=== PATIENT | female | born 1955 | race Caucasian/White ===

== ENCOUNTER 2018-10-21 09:35 | Outpatient (CLI) | payer OTHER ==
--- NOTE | 2018-10-21 11:09 | XRAY Report ---
Reason: SPRAIN OF CALCANEOFIBULAR LIGA OF RT ANKLE Procedure Date: 10/21/2018 Accession Number: [id number] / [id number] Procedure: XR - Ankle 3 View RT CPT Code: FULL RESULT: EXAM: RIGHT ANKLE RADIOGRAPHY EXAM DATE: 10/21/2018 10:03 AM. CLINICAL HISTORY: Sprain of calcaneofibular ligament of right ankle. Right ankle pain after rolling ankle one day ago. COMPARISON: None. TECHNIQUE: 3 views. FINDINGS: Bones: Mild inferior and mild posterior calcaneal spurring. No fractures or bone lesions. Joints: Normal. No effusion. No subluxations. The ankle mortise is normally aligned. Soft Tissues: Mild soft tissue swelling in the ankle region. IMPRESSION: No fracture or dislocation. RADIA
== END 2018-10-21 09:36 | disposition home or self-care (01) ==
LOC: DI 09:35
PROVIDERS: ATTEND Family Medicine
DX: S93.411A Sprain of calcaneofibular ligament of right ankle, initial encounter (principal)

== ENCOUNTER 2019-02-22 17:10 | Outpatient (CLI) | payer OTHER | END 2019-02-22 23:59 | disposition home or self-care (01) | LOC: LAB.R 17:10 | PROVIDERS: ATTEND Nurse Practitioner | DX: J02.9 Acute pharyngitis, unspecified (principal) | CPT/HCPCS: 87070 ==

== ENCOUNTER 2022-07-15 10:29 | Emergency (ER) | payer MEDICARE, OTHER ==
--- NOTE | 2022-07-15 10:54 | ED Physician Documentation ---
PD HPI HEENT - Stated complaint Stated Complaint: RT EAR PX,UNWELL - Chief complaint Chief Complaint: Heent - History obtained from History obtained from: Patient - Additional information Additional information: She has been sick for 2 weeks with prominent sinus pressure, drainage, bilateral ear crackling and pain. No fevers. Had a cough last night. Took 5 days worth of amoxicillin starting 5 days ago which was not helpful. She is been on Flonase as well. PD PAST MEDICAL HISTORY - Past Medical History Endocrine/Autoimmune: HyPOthyroidism - Past Surgical History Past Surgical History: No General: Bowel surgery - Present Medications Home Medications: Ambulatory Orders Medication Instructions Recorded Confirmed Hydrocodone/Acetaminophen [[place] 1 each PO Q6H PRN #15 tablet 04/12/15 5-325 Tablet] Levothyroxine [Synthroid] 2 tab PO DAILY 04/12/15 04/12/15 methocarbamoL [Robaxin] 500 mg PO Q6H PRN #25 tablet 04/12/15 Amox/Clav 875/125 [Augmentin] 1 each PO Q12H #20 tablet 07/15/22 Azithromycin [Zithromax] 1 tab PO DAILY #6 tablet 07/15/22 predniSONE [Deltasone] 40 mg PO DAILY 5 Days #10 tablet 07/15/22 - Allergies Allergies/Adverse Reactions: Allergies Allergy/AdvReac Type Severity Reaction Status Date / Time aspirin Allergy Respiratory Verified 07/15/22 10:39 cephalexin monohydrate * Allergy Rash Verified 07/15/22 10:39 [From Keflex] latex Allergy Rash Verified 07/15/22 10:39 - Social History Does the pt smoke?: No Smoking Status: Never smoker Does the pt drink ETOH?: Yes Does the pt have substance abuse?: No - Immunizations Immunizations are current?: Yes PD ED PE NORMAL - Vitals Vital signs reviewed: Yes - General General: Alert and oriented X 3, No acute distress - HEENT HEENT: Pharynx benign, Other (Tender to both maxillary sinuses. Both TMs are normal.) - Respiratory Respiratory: No respiratory distress, Clear bilaterally - Abdomen Abdomen: Non tender - Neuro Neuro: Alert and oriented X 3, Normal speech Results - Vitals Vitals: Vital Signs - 24 hr 07/15/22 10:34 Temperature 36.8 C Heart Rate 108 H Respiratory 16 Rate Blood Pressure 146/81 H O2 Saturation 99 Oxygen O2 Source Room air PD Medical Decision Making - ED course ED course: 67-year-old woman with sinusitis. Given her age and the time course reasonable to trial antibiotics. She was hesitant to start Augmentin given that she failed amoxicillin. After discussion she will take Augmentin, but given a prescription for Z-Kirit to not fill unless not improved over the next few days. Departure - Departure Disposition: 01 Home, Self Care Clinical Impression: Sinusitis Condition: Good Record reviewed to determine appropriate education?: Yes Instructions: ED Sinusitis Abx Tx Prescriptions: Amox/Clav 875/125 [Augmentin] 1 each PO Q12H #20 tablet predniSONE [Deltasone] 40 mg PO DAILY 5 Days #10 tablet Azithromycin [Zithromax] 1 tab PO DAILY #6 tablet Comments: I sent your prescriptions electronically to [facility] in [place]. As discussed, I would like you to trial of the Augmentin first as that is the preferred antibiotic for sinus infections. If no relief in 3 to 5 days you can add a azithromycin. Return for new or worsening symptoms. Follow-up with your doctor in a week if not better.
[2022-07-15 11:02] VITALS: BP 144/72
== END 2022-07-15 11:19 | disposition home or self-care (01) ==
LOC: ED 10:29
DX: J32.9 Chronic sinusitis, unspecified (principal)
CPT/HCPCS: 99281; 99283

== ENCOUNTER 2023-04-20 13:01 | Emergency (ER) | payer MEDICARE, OTHER ==
[2023-04-20 13:39] VITALS: BP 163/67; O2SAT 100
--- NOTE | 2023-04-20 13:45 | ED Physician Documentation ---
History of Present Illness - Stated complaint Stated Complaint: FACIAL PX, PLUGGED EARS - Chief complaint Chief Complaint: Heent - History obtained from History obtained from: Patient - Additonal information Additional information: Sick for 10 days with prominent sinus pressure and ear fullness. No fevers. Took 3 doses of Augmentin last weekend which improved her but then relapsed. PD PAST MEDICAL HISTORY - Past Medical History Past Medical History: Yes Endocrine/Autoimmune: HyPOthyroidism - Past Surgical History Past Surgical History: No General: Bowel surgery - Present Medications Home Medications: Ambulatory Orders Medication Instructions Recorded Confirmed Levothyroxine [Synthroid] 2 tab PO DAILY 04/12/15 07/15/22 Amox/Clav 875/125 [Augmentin] 1 each PO Q12H #20 tablet 07/15/22 Azithromycin [Zithromax] 1 tab PO DAILY #6 tablet 07/15/22 predniSONE [Deltasone] 40 mg PO DAILY 5 Days #10 tablet 07/15/22 Amox/Clav 875/125 [Augmentin] 1 each PO Q12H #20 tablet 04/20/23 Fluticasone [Flonase] 1 sprays AZALIA BID #16 gm 04/20/23 - Allergies Allergies/Adverse Reactions: Allergies Allergy/AdvReac Type Severity Reaction Status Date / Time aspirin Allergy Respiratory Verified 04/20/23 13:20 latex Allergy Rash Verified 04/20/23 13:20 - Social History Does the pt smoke?: No Smoking Status: Never smoker Does the pt drink ETOH?: Yes Does the pt have substance abuse?: No - Immunizations Immunizations are current?: Yes PD ED PE NORMAL - Vitals Vital signs reviewed: Yes - General General: Alert and oriented X 3, No acute distress - HEENT HEENT: PERRL, EOMI, Other (TMs normal, bilateral maxillary sinus tenderness, oropharynx and visualized nasal mucosa normal.) - Neck Neck: Supple, no meningeal sign, No bony TTP - Neuro Neuro: Alert and oriented X 3, Normal speech Results - Vitals Vitals: Vital Signs - 24 hr 04/20/23 13:21 Temperature 37 C Heart Rate 97 Respiratory 18 Rate Blood Pressure 163/67 H O2 Saturation 100 Oxygen O2 Source Room air PD Medical Decision Making - ED course ED course: 68-year-old woman with sinusitis. She wanted to go back to Zithromax but discussed with her that since she did get better albeit briefly with a abbreviated course of Augmentin, and Augmentin is the preferred antibiotic for sinusitis would start with that. Departure - Departure Disposition: Home, Self Care Clinical Impression: Sinusitis Qualifiers: Sinusitis location: maxillary Chronicity: acute Recurrence: recurrent Qualified Code(s): J01.01 - Acute recurrent maxillary sinusitis Condition: Good Record reviewed to determine appropriate education?: Yes Instructions: ED Sinusitis Abx Tx Prescriptions: Amox/Clav 875/125 [Augmentin] 1 each PO Q12H #20 tablet Fluticasone [Flonase] 1 sprays AZALIA BID #16 gm Comments: I sent your prescriptions electronically to the [facility] in [place]. As discussed, Augmentin is the preferred antibiotic for sinus infections, if not improving you can call me on Friday at [phone] we can discuss alternatives, but would not recommend starting azithromycin now. Follow-up with your doctor in a week, return for new or worsening symptoms. Drink plenty of fluids. Forms: PCP List
== END 2023-04-20 13:50 | disposition home or self-care (01) ==
LOC: ED 13:01
DX: J01.01 Acute recurrent maxillary sinusitis (principal)
CPT/HCPCS: 99282; 99283